=== PATIENT | female | born 1955 | race Two or more races ===

== ENCOUNTER 2023-08-07 01:48 | Inpatient (IN) | payer OTHER ==
[~2023-08-07] VITALS: Ht 172.7 cm; Wt 80.2 kg
[~2023-08-07 01:48] MED LIST: BACDST PO; MORP15TA PO; ZOFR4T PO
[2023-08-07 02:30] VITALS: PULSE 115; RESP 25; O2SAT 96
[2023-08-07 03:03] LABS: Basophils # (auto) 0.1 10 ^3/uL (0-0.2); Basophils % (auto) 0.2 % (0.0-2.0); Eosinophils # (auto) 0 10 ^3/uL (0-0.8); Eosinophils % (auto) 0.2 % (0.0-7.0); Hematocrit 38.9 % (36.0-46.0); Hemoglobin 12.9 g/dL (12.2-16.2); Lymphocytes # (auto) 3.1 10 ^3/uL (0.4-5.4); Lymphocytes % (auto) 13.4 % (10.0-50.0); Mean Corpuscular Volume 75.8 fL (80.0-100.0); Monocytes # (auto) 1.4 10 ^3/uL (0-1.3); Neutrophils # (auto) 18.5 10 ^3/uL (1.6-8.6); Neutrophils % (auto) 80.2 % (37.0-80.0); Red Blood Cells 5.14 10^6/uL (4.0-5.20)
[2023-08-07 03:04] LABS: Red Cell Distribution Width 22.3 % (11.8-14.3)
[2023-08-07] MEDS: SODIUM CHLORIDE 0.9% 1,000 ML IV ONE (03:12)
[2023-08-07] MEDS: ONDANSETRON HCL 4 MG/2 ML VIAL IV ONE (03:12)
[2023-08-07] MEDS: PIPERACILLIN-TAZO 4.5GM 100 ML IV ONE (03:12)
[2023-08-07] MEDS: MORPHINE SULFATE 4 MG/ML SYR/VIAL IV ONE (03:15)
[2023-08-07 03:21] LABS: Alanine Aminotransferase 107 U/L (7-40); Alkaline Phosphatase 605 U/L (46-116); Anion Gap 12 (5-15); Aspartate Aminotransferase 120 U/L (13-40); BUN/Creatinine Ratio 33.3 (10.0-20.0); Blood Urea Nitrogen 32 mg/dL (9-23); Calcium 10.4 mg/dL (8.7-10.4); Carbon Dioxide 20 mmol/L (20-30); Chloride 101 mmol/L (98-107); Glucose 170 mg/dL (74-106); Potassium 4.5 mmol/L (3.5-5.1); Sodium 133 mmol/L (136-145)
[2023-08-07 03:22] LABS: Albumin 4.1 g/dL (3.2-4.8); Bilirubin, Total 2.8 mg/dL (0.2-1.0); Total Protein 7.5 g/dL (5.7-8.2)
[2023-08-07 03:26] LABS: Lactic Acid w/Reflex 2.7 mmol/L (0.4-2.0)
[2023-08-07] MEDS: VANCOMYCIN 1GM/200ML 200 ML IV ONE (04:36)
[2023-08-07 05:36] LABS: Urine Bacteria FEW /hpf (None Seen); Urine Blood 3+ /uL (Negative); Urine Clarity HAZY (Clear); Urine Color Yellow (Yellow); Urine Hyaline Cast FEW /lpf (0 - 2); Urine Mucus FEW (None Seen); Urine Protein, UAD 1+ (Negative); Urine Specific Gravity 1.018 (1.001-1.035); Urine WBC 32 /hpf (0 - 5); Urine pH 5.5 (5.0-8.0)
[2023-08-07 05:51] LABS: COVID19 ANTIGEN SOFIA FIA NEGATIVE (NEGATIVE); Rapid Influenza A Negative (Negative); Rapid Influenza B Negative (Negative)
[2023-08-07] MEDS: HYDROmorphone HCL 2 MG/ML VL/or syr IV ONE (06:20)
[2023-08-07 07:30] VITALS: PULSE 91; RESP 20; O2SAT 100
[2023-08-07] MEDS ORDERED: ACETAMINOPHEN 325 MG TAB PO PRN (08:45)
[2023-08-07] MEDS ORDERED: MORPHINE SULFATE INJ 2 MG/ml SYRG IV PRN (08:45)
[2023-08-07] MEDS ORDERED: NITROGLYCERIN 0.4 MG SL TAB SL PRN (08:45)
[2023-08-07] MEDS ORDERED: ONDANSETRON HCL 4 MG/2 ML VIAL IV PRN (08:45)
[2023-08-07] MEDS: LACTATED RINGER'S 1,000 ML IV ONE (09:05)
[2023-08-07 09:50] LABS: Lactic Acid w/Reflex 2.2 mmol/L (0.4-2.0)
[2023-08-07] MEDS ORDERED: dilTIAZem 25 MG/5 ML VIAL IV PRN (10:15)
[2023-08-07 10:16] LABS: Magnesium 2.3 mg/dL (1.6-2.6)
[2023-08-07 10:18] LABS: Phosphorus 4.5 mg/dL (2.4-5.1)
[2023-08-07 10:20] LABS: Bilirubin, Direct 1.8 mg/dL (<0.3); Bilirubin, Total 2.5 mg/dL (0.2-1.0)
[2023-08-07] MEDS: cefTRIAXone 1GM/50ML D5W 50 ML IV SCH (12:08)
[2023-08-07] MEDS: ENOXAPARIN SOD 40 MG/0.4 ML SYRINGE SC SCH (12:09)
[2023-08-07] MEDS: HYDROmorphone HCL 2 MG/ML VL/or syr IV PRN (12:09)
[2023-08-07] MEDS ORDERED: SENN-231 PO (12:18)
[2023-08-07] MEDS ORDERED: MEGE40TA4 PO (12:18)
[2023-08-07] MEDS ORDERED: DRON5CAP PO (12:18)
[2023-08-07] MEDS ORDERED: MIRT1TAB38 PO (12:18)
[2023-08-07] MEDS ORDERED: HYDR2TAB58 PO (12:18)
[2023-08-07] MEDS ORDERED: PANT40TA2 PO (12:18)
[2023-08-07 13:00] VITALS: BP 116/70; PULSE 95; RESP 16; TEMP 97.7; O2SAT 99
[2023-08-07] MEDS: SODIUM CHLOR 0.9% PF (SALINE LOCK) 10ML VIAL/SYR IV SCH (14:00)
[2023-08-07] MEDS: AMIODARONE BOLUS KIT 100 ML IV ONE (15:07)
[2023-08-07] MEDS: AMIODARONE 450mg/250ml AE 250 ML IV SCH ×2 (15:17→21:33)
[2023-08-07 16:42] VITALS: BP 109/66; PULSE 94; RESP 14; TEMP 97.7; O2SAT 98
[2023-08-07 20:00] VITALS: PULSE 92; PULSE 94; RESP 20; O2SAT 98
[2023-08-07] MEDS: DOCUSATE SOD 100 MG CAP PO PRN (21:33)
[2023-08-07] MEDS: METOPROLOL TARTRATE 25 MG TAB PO SCH (21:37)
[2023-08-07] MEDS: ENOXAPARIN SOD 80 MG/0.8ML SYRINGE SC SCH (21:38)
[2023-08-07 22:00] VITALS: BP 132/70; PULSE 92; RESP 20; TEMP 98; O2SAT 98
[2023-08-07] MEDS: HYDROcodone-ACET 5/325MG TAB PO PRN (23:28)
[2023-08-08 05:00] VITALS: BP 135/73; PULSE 85; RESP 20; TEMP 98; O2SAT 98
[2023-08-08 08:00] VITALS: PULSE 83
[2023-08-08 12:55] VITALS: BP 131/72; PULSE 90; RESP 20; TEMP 98; O2SAT 93
[2023-08-08] MEDS: AMIODARONE HCL 200 MG TAB PO ONE (13:05)
[2023-08-08] MEDS: SODIUM CHLORIDE 0.9% 1,000 ML IV SCH (14:00)
[2023-08-08 17:16] VITALS: BP 135/68; PULSE 83; RESP 20; TEMP 97.9; O2SAT 96
[2023-08-08 20:00] VITALS: PULSE 87; RESP 18
[2023-08-08] MEDS: MIRTAZAPINE 30 MG TAB PO SCH (21:56)
[2023-08-08] MEDS: AMIODARONE HCL 200 MG TAB PO SCH (21:57)
[2023-08-08] MEDS: MEGESTROL ACETATE 20 MG TAB PO SCH (21:58)
[2023-08-08 22:00] VITALS: BP 145/70; PULSE 85; RESP 22; TEMP 97.6; O2SAT 99
[2023-08-09 05:00] VITALS: BP 142/67; PULSE 89; RESP 22; TEMP 98.6; O2SAT 98
[2023-08-09 07:00] LABS: Basophils # (auto) 0 10 ^3/uL (0-0.2); Eosinophils # (auto) 0 10 ^3/uL (0-0.8); Lymphocytes % (auto) 10.9 % (10.0-50.0)
[2023-08-09 07:02] LABS: Basophils % (auto) 0.2 % (0.0-2.0); Eosinophils % (auto) 0.4 % (0.0-7.0); Hematocrit 34.1 % (36.0-46.0); Hemoglobin 11.2 g/dL (12.2-16.2); Lymphocytes # (auto) 1.3 10 ^3/uL (0.4-5.4); Mean Corpuscular Hemoglobin 25.6 pg (28.0-32.0); Mean Corpuscular Hgb Conc. 32.8 g/dL (32.0-36.0); Monocytes # (auto) 0.9 10 ^3/uL (0-1.3); Monocytes % (auto) 7.5 % (0.0-12.0); Red Blood Cells 4.38 10^6/uL (4.0-5.20); White Blood Cell 12.3 10^3/uL (4.4-10.8)
[2023-08-09 07:04] LABS: Red Cell Distribution Width 23.5 % (11.8-14.3)
[2023-08-09 07:21] LABS: Anion Gap 7 (5-15); Carbon Dioxide 23 mmol/L (20-30); Chloride 106 mmol/L (98-107); Potassium 4.3 mmol/L (3.5-5.1); Sodium 136 mmol/L (136-145)
[2023-08-09 07:23] LABS: Calcium 9.8 mg/dL (8.5-10.1)
[2023-08-09 07:27] LABS: BUN/Creatinine Ratio 23.4 (10.0-20.0); Blood Urea Nitrogen 18 mg/dL (9-23); Glucose 85 mg/dL (74-106)
[2023-08-09 07:58] LABS: Lactic Acid w/Reflex 2.2 mmol/L (0.4-2.0)
[2023-08-09 08:00] VITALS: BP 143/74; PULSE 88; PULSE 89; RESP 20; TEMP 97.9; O2SAT 96
[2023-08-09] MEDS: AMIODARONE BOLUS KIT 100 ML IV ONE ×2 (11:28→11:31)
[2023-08-09] MEDS: METOPROLOL TARTRATE 1MG/1ML-5ML VIAL IV ONE ×2 (11:31→11:33)
[2023-08-09] MEDS: AMIODARONE 450mg/250ml AE 250 ML IV ONE (11:38)
[2023-08-09] MEDS: AMIODARONE 450mg/250ml AE 250 ML IV SCH ×2 (11:41→18:23)
[2023-08-09 13:00] VITALS: BP 142/74; PULSE 61; RESP 18; TEMP 98; O2SAT 97
[2023-08-09 16:42] VITALS: BP 121/58; PULSE 72; RESP 16; TEMP 98.1; O2SAT 99
[2023-08-09 20:00] VITALS: RESP 17
[2023-08-09 22:00] VITALS: BP 123/64; PULSE 67; RESP 22; TEMP 97.9; O2SAT 99
[2023-08-09] MEDS: ENOXAPARIN SOD 80 MG/0.8ML SYRINGE SC SCH (22:00)
[2023-08-10] MEDS ORDERED: PANTOPRAZOLE 40 MG TAB PO SCH (10:00)
== END 2023-08-09 22:20 | disposition short-term general hospital (02) | DRG 281 ==
LOC: EDBD 01:48 → EDUNIT# 01:48 → ER 01:48 → TELE 08:41 → TELE-WESTW 10:18
PROVIDERS: ADMIT Internal Medicine; ATTEND Internal Medicine
DX: I48.0 Paroxysmal atrial fibrillation (principal); I21.A1 Myocardial infarction type 2; C18.9 Malignant neoplasm of colon, unspecified; N30.00 Acute cystitis without hematuria; E87.20 Acidosis, unspecified; D68.69 Other thrombophilia; C79.51 Secondary malignant neoplasm of bone; C78.00 Secondary malignant neoplasm of unspecified lung; C78.7 Secondary malignant neoplasm of liver and intrahepatic bile duct; D68.59 Other primary thrombophilia; I47.10 Supraventricular tachycardia, unspecified; Z20.822 Contact with and (suspected) exposure to COVID-19; I10 Essential (primary) hypertension; E78.5 Hyperlipidemia, unspecified; E78.00 Pure hypercholesterolemia, unspecified; E11.9 Type 2 diabetes mellitus without complications; Z74.01 Bed confinement status; Z51.5 Encounter for palliative care; Z79.84 Long term (current) use of oral hypoglycemic drugs; Z83.3 Family history of diabetes mellitus; Z80.1 Family history of malignant neoplasm of trachea, bronchus and lung; L89.152 Pressure ulcer of sacral region, stage 2
CPT/HCPCS: 36415; 71045; 74176; 76705; 80048; 80053; 81001; 82247; 82248; 83605; 83690; 83735; 84100; 84443; 84484; 85025; 87040; 87081; 87086; 87426; 87804; 93005; 93306; 96365; 96375; 97163; 99291; G0378; J2405; J2543

== ENCOUNTER 2023-08-18 10:39 | Inpatient (IN) | payer OTHER ==
[~2023-08-18] VITALS: Ht 172.7 cm; Wt 64.0 kg
[2023-08-18] VITALS (8 sets, daily range): BP systolic 58–152; BP diastolic 20–39; PULSE 47–105; RESP 14–30; TEMP 96.1; O2SAT 95–99
[~2023-08-18 10:39] MED LIST changes: -BACDST PO; +DRON5CAP PO; +HYDR2TAB58 PO; +MEGE40TA4 PO; +MIRT1TAB38 PO; +PANT40TA2 PO; +SENN-231 PO
[2023-08-18] MEDS: GLUCAGON EMERG KIT 1mg/1ml ONE (11:16)
[2023-08-18 12:00] LABS: Hematocrit 23.2 % (36.0-46.0); Hemoglobin 7.1 g/dL (12.2-16.2); Red Blood Cells 2.82 10^6/uL (4.0-5.20)
[2023-08-18 12:01] LABS: Mean Corpuscular Hemoglobin 25.4 pg (28.0-32.0); Mean Corpuscular Hgb Conc. 30.8 g/dL (32.0-36.0); Mean Corpuscular Volume 82.3 fL (80.0-100.0); White Blood Cell 15.3 10^3/uL (4.4-10.8)
[2023-08-18 12:12] LABS: Red Cell Distribution Width 24.9 % (11.8-14.3)
[2023-08-18 12:14] LABS: Band Neutrophils % (manual) 0; Basophils % (manual) 0 (0.0-2.0); Blast Cells 0; Eosinophils % (manual) 0 (0-7); Metamyelocytes % 0; Myelocytes % 0; Promyelocytes % 0; Reactive Lymphocytes 0
[2023-08-18 12:34] LABS: Lymphocytes % (manual) 32 (10.0-50.0); Monocytes % (manual) 2 (0-12)
[2023-08-18 12:35] LABS: Platelet Estimate Adequate
[2023-08-18 12:42] LABS: INR 2.06 (0.9-1.15); Partial Thromboplastin Time 40.8 SEC (24.5-34.5); Prothrombin Time 20.6 sec (9.3-11.8)
[2023-08-18 12:47] LABS: Albumin 2.9 g/dL (3.2-4.8); Alkaline Phosphatase 689 U/L (46-116); Anion Gap 29.00001 (5-15); Aspartate Aminotransferase > 1000 U/L (13-40); BUN/Creatinine Ratio 27.5 (10.0-20.0); Blood Urea Nitrogen 42 mg/dL (9-23); Calcium 12.3 mg/dL (8.7-10.4); Chloride 103 mmol/L (98-107); Creatine Kinase IFCC 298 U/L (34-145); Glucose 219 mg/dL (74-106); Lipase 52 U/L (12-53); Sodium 142 mmol/L (136-145)
[2023-08-18 12:48] LABS: Bilirubin, Total 1.7 mg/dL (0.2-1.0); Total Protein 5.1 g/dL (5.7-8.2)
[2023-08-18 12:49] LABS: Base Excess -27.9 mmol/L (-2.0-2.0)
[2023-08-18 12:56] LABS: Lactic Acid w/Reflex > 15.5 mmol/L (0.4-2.0)
[2023-08-18 12:57] LABS: Alanine Aminotransferase > 1000 U/L (7-40); Carbon Dioxide < 10 mmol/L (20-30); Potassium 6.5 mmol/L (3.5-5.1)
[2023-08-18 12:58] LABS: Magnesium 5.6 mg/dL (1.6-2.6)
[2023-08-18] MEDS: SODIUM CHLORIDE 0.9% 1,000 ML IV ONE (13:00)
[2023-08-18] MEDS: NOREPINEPHRINE 8 MG/250ML KIT 250 ML IV ONE ×2 (13:17→19:48)
[2023-08-18] MEDS: DOPamine 1600MCG/ML D5W 250 ML IV ONE (13:51)
[2023-08-18] MEDS: DOPamine 1600MCG/ML D5W 250 ML IV SCH (14:00)
[2023-08-18] MEDS: FUROSEMIDE 20 MG/2 ML VIAL IV ONE (14:04)
[2023-08-18] MEDS: SODIUM BICARB 8.4% 50Meq/50ml SYR Vial IV ONE ×3 (14:04→22:06)
[2023-08-18] MEDS: PIPERACILLIN-TAZOB 3.375GM 100 ML IV ONE (14:09)
[2023-08-18] MEDS: SODIUM ZIRCONIUM CYCL 10 GM PAK PO ONE (14:30)
[2023-08-18 14:48] LABS: Urine Bacteria NONE SEEN /hpf (None Seen); Urine Blood 3+ /uL (Negative); Urine Clarity CLOUDY (Clear); Urine Color Red (Yellow); Urine Mucus FEW (None Seen); Urine Protein, UAD 2+ (Negative); Urine Specific Gravity 1.018 (1.001-1.035); Urine Urobilinogen Normal (Negative); Urine WBC 909 /hpf (0 - 5); Urine WBC Clumps PRESENT /hpf (None Seen); Urine pH 5.5 (5.0-8.0)
[2023-08-18] MEDS: ALBUTEROL SULF 2.5 MG/0.5ML(0.5%) NEB SOLN NEB ONE ×2 (15:09→22:40)
[2023-08-18] MEDS ORDERED: VANCOMYCIN PER PHARMACY 0 MG IV SCH (15:30)
[2023-08-18] MEDS ORDERED: ONDANSETRON HCL 4 MG/2 ML VIAL IV PRN (15:30)
[2023-08-18] MEDS: LACTULOSE 10g/15ml SOLN 473ML PR ONE (16:30)
[2023-08-18] MEDS: MIDAZOLAM DRIP 50 mg/50mL 50 ML IV SCH (16:51)
[2023-08-18] MEDS: OCTREOTIDE ACETATE 100 MCG in SODIUM CHL 0.9% 50 ML IV ONE (16:52)
[2023-08-18] MEDS: PANTOPRAZOLE 40 MG/10 ML VIAL INJ IV ONE (16:53)
[2023-08-18] MEDS: VANCOMYCIN 1GM/200ML 200 ML IV ONE (17:21)
[2023-08-18] MEDS: OCTREOTIDE ACETATE 500 MCG in SODIUM CHL 0.9% 99 ML IV SCH (17:22)
[2023-08-18] MEDS: LACTULOSE 10g/15ml SOLN 473ML PR SCH (18:00)
[2023-08-18] MEDS: PANTOPRAZOLE 40mg/50ML NS AE 50 ML IV SCH (18:45)
[2023-08-18] MEDS: SODIUM CHLORIDE 0.9% 1,000 ML IV SCH (18:46)
[2023-08-18] MEDS: SODIUM BICARB 50mEq/50ml Vial 150 ML in D5W 5% 1,000 ML IV SCH (18:46)
[2023-08-18] MEDS: NOREPINEPHRINE 8 MG/250ML KIT 250 ML IV SCH (19:35)
[2023-08-18] MEDS: HYDROCORTISONE SOD SUCC 100 MG/2ML INJ VIAL ONE (19:46)
[2023-08-18] MEDS: GLUCAGON EMERG KIT 1mg/1ml IV ONE (19:58)
[2023-08-18] MEDS: HYDROCORTISONE SOD SUCC 100 MG/2ML INJ VIAL IV ONE (19:59)
[2023-08-18 20:22] LABS: Hematocrit 42.1 % (36.0-46.0); Hemoglobin 12.6 g/dL (12.2-16.2)
[2023-08-18 20:29] LABS: Albumin 2.5 g/dL (3.2-4.8); Alkaline Phosphatase 656 U/L (46-116); Anion Gap 32.00001 (5-15); BUN/Creatinine Ratio 21.3 (10.0-20.0); Blood Urea Nitrogen 42 mg/dL (9-23); Calcium 9.3 mg/dL (8.5-10.1); Chloride 105 mmol/L (98-107); Glucose 127 mg/dL (74-106)
[2023-08-18 20:30] LABS: Bilirubin, Total 2.2 mg/dL (0.2-1.0); Total Protein 4.4 g/dL (5.7-8.2)
[2023-08-18 20:45] LABS: Alanine Aminotransferase > 6000 U/L (7-40); Aspartate Aminotransferase > 6000 U/L (13-40); Sodium 147 mmol/L (136-145)
[2023-08-18 20:47] LABS: Lactic Acid w/Reflex 27.7 mmol/L (0.4-2.0)
[2023-08-18 20:48] LABS: Carbon Dioxide < 10 mmol/L (20-30); Potassium 6.8 mmol/L (3.5-5.1)
[2023-08-18] MEDS ORDERED: PIPERACILLIN-TAZOB 3.375GM 100 ML IV SCH (22:00)
[2023-08-18] MEDS: DEXTROSE (50%) 50ML SYRG IV ONE (22:05)
[2023-08-18] MEDS: CALCIUM GLUC 1,000mg/50ml-NS 50 ML IV ONE (22:06)
[2023-08-18] MEDS: LACTATED RINGER'S 1,000 ML IV ONE (22:06)
[2023-08-18] MEDS: InsuLIN REG 1unit/0.01ml Soln (100units/ml) IV ONE (22:13)
[2023-08-18] MEDS: PHENYLEPHRINE IV 250 ML IV SCH (23:18)
[2023-08-19] MEDS: LACTULOSE 10g/15ml SOLN 473ML PR SCH
[2023-08-19 00:25] VITALS: BP 76/47; PULSE 62; RESP 34; O2SAT 97
[2023-08-19] MEDS: VASOPRESSIN 20 UNIT/ML ONE (01:06)
[2023-08-19] MEDS: VASOPRESSIN 20 UNITS in SODIUM CHL 0.9% 99 ML IV SCH (01:06)
[2023-08-19 01:10] VITALS: BP 76/24; PULSE 64; RESP 24; TEMP 96.3
[2023-08-19 02:10] VITALS: BP 87/45; PULSE 73; RESP 32
[2023-08-19] MEDS: OCTREOTIDE ACETATE 500 MCG/ML VL ONE (02:16)
[2023-08-19] MEDS ORDERED: SODIUM BICARB 8.4% 50Meq/50ml SYR Vial IV ONE (02:30)
[2023-08-19 03:00] VITALS: PULSE 51; TEMP 97.5; O2SAT 67
[2023-08-19 04:05] VITALS: RESP 20
[2023-08-19 04:16] VITALS: BP 60/29
== END 2023-08-19 04:18 | DRG 208 ==
LOC: EDUNIT# 10:39 → EDBD 10:39 → ER 10:39 → TELE 15:33
PROVIDERS: ADMIT Nurse Practitioner Family; ATTEND Internal Medicine Pulmonary Disease
PROC: 5A1935Z Respiratory Ventilation, Less than 24 Consecutive Hours (ICD-10-PCS; principal; 2023-08-18)
PROC: 0BH17EZ Insertion of Endotracheal Airway into Trachea, Via Natural or Artificial Opening (ICD-10-PCS; 2023-08-18)
PROC: 30233N1 Transfusion of Nonautologous Red Blood Cells into Peripheral Vein, Percutaneous Approach (ICD-10-PCS; 2023-08-18)
PROC: 06HY33Z Insertion of Infusion Device into Lower Vein, Percutaneous Approach (ICD-10-PCS; 2023-08-18)
PROC: B54BZZA Ultrasonography of Right Lower Extremity Veins, Guidance (ICD-10-PCS; 2023-08-18)
PROC: 5A12012 Performance of Cardiac Output, Single, Manual (ICD-10-PCS; 2023-08-18)
DX: J96.01 Acute respiratory failure with hypoxia (principal); A41.9 Sepsis, unspecified organism; E43 Unspecified severe protein-calorie malnutrition; R65.21 Severe sepsis with septic shock; K72.00 Acute and subacute hepatic failure without coma; G93.41 Metabolic encephalopathy; E87.21 Acute metabolic acidosis; I48.20 Chronic atrial fibrillation, unspecified; N17.9 Acute kidney failure, unspecified; D68.69 Other thrombophilia; C79.51 Secondary malignant neoplasm of bone; C78.7 Secondary malignant neoplasm of liver and intrahepatic bile duct; C79.00 Secondary malignant neoplasm of unspecified kidney and renal pelvis; K92.2 Gastrointestinal hemorrhage, unspecified; T68.XXXA Hypothermia, initial encounter; I46.9 Cardiac arrest, cause unspecified; Z66 Do not resuscitate; E87.5 Hyperkalemia; R74.01 Elevation of levels of liver transaminase levels; L89.159 Pressure ulcer of sacral region, unspecified stage; I10 Essential (primary) hypertension; I95.9 Hypotension, unspecified; E11.9 Type 2 diabetes mellitus without complications; E83.41 Hypermagnesemia; Z85.038 Personal history of other malignant neoplasm of large intestine; D50.0 Iron deficiency anemia secondary to blood loss (chronic); Z80.1 Family history of malignant neoplasm of trachea, bronchus and lung; Z83.3 Family history of diabetes mellitus; Z74.01 Bed confinement status; Z68.21 Body mass index [BMI] 21.0-21.9, adult
CPT/HCPCS: 31500; 36415; 36556; 36600; 71045; 80053; 81001; 82140; 82550; 82805; 82962; 83605; 83690; 83735; 83880; 84484; 85007; 85014; 85018; 85027; 85610; 85730; 86850; 86900; 86901; 86920; 87040; 87070; 87077; 87186; 87205; 92950; 93005; 94002; 94640; 96361; 96365; 96375; 99291; 99292; C9113; G0378; J1815; J2250; J2543